=== PATIENT | male | born 1940 | race Caucasian/White ===

== ENCOUNTER → 2018-02-28 | Outpatient (CLI) | payer MEDICARE ==
--- NOTE | 2018-02-28 17:14 | XR ---
EXAMINATION TYPE: PA chest and left rib series DATE OF EXAM: 02/28/2018 COMPARISON: NONE HISTORY: 77-year-old male left rib pain after fall TECHNIQUE: 5 views FINDINGS: Heart normal size. Calcified AP window lymph nodes. Median sternotomy wires with post-CABG clips. Lef tward patient rotation causes some limitation. Mild diffuse interstitial prominence as a chronic appe arance. No consolidation, pneumothorax, or pleural effusion. Calcified left apical granuloma. No dis placed left rib fracture seen. IMPRESSION: Chronic-appearing changes without acute cardiopulmonary process. No displaced left rib fracture seen.
== END | disposition home or self-care (01) ==
LOC: RADXRYALE 12:03
PROVIDERS: ATTEND Family Medicine
DX: R07.82 Intercostal pain (principal)